=== PATIENT | female | born 1980 | race Caucasian/White ===

== ENCOUNTER 2017-12-18 17:22 | Emergency (ER) | payer OTHER ==
[2017-12-18 17:46] LABS: URINE HCG POC HCG NEGATIVE (Negative)
[2017-12-18 17:58] LABS: BILIRUBIN,URINE NEGATIVE (NEG); CLARITY,URINE CLEAR; COLOR,URINE YELLOW; GLUCOSE,URINE 100 mg/dL (NEG); NITRITE,URINE NEGATIVE (NEG); PROTEIN,URINE NEGATIVE (NEG-TRACE); UROBILINOGEN,URINE 0.2 mg/dL (0.2 mg/dL)
[2017-12-18 17:58] LABS: POC GLUCOSE 167 mg/dL (70-99)
[2017-12-18 18:14] LABS: BACTERIA,URINE FEW /HPF (0-FEW); RBC,URINE 0 /HPF (0-2); SQUAMOUS EPITHELIAL CELL,UR FEW /LPF; TRICHOMONAS,URINE PRESENT; YEAST,URINE PRESENT /HPF
[2017-12-18] MEDS: cefTRIAXone IM 250 MG VIAL IM (18:41)
[2017-12-18] MEDS: FLUCONAZOLE 100 MG TABLET. PO (18:43)
[2017-12-18] MEDS: metroNIDAZOLE 500 MG TABLET PO (18:44)
[2017-12-18] MEDS: AZITHROMYCIN 250 MG TABLET. PO (18:44)
[2017-12-20 15:23] LABS: CHLAMYDIA PROBE Negative (Negative); GC PROBE Negative (Negative)
== END 2017-12-18 19:05 | disposition home or self-care (01) ==
LOC: ER 19:05
DX: N39.0 Urinary tract infection, site not specified (principal); A59.09 Other urogenital trichomoniasis; N94.10 Unspecified dyspareunia; B37.3 Candidiasis of vulva and vagina; F41.9 Anxiety disorder, unspecified; F32.9 Major depressive disorder, single episode, unspecified; E11.9 Type 2 diabetes mellitus without complications; I10 Essential (primary) hypertension; Z96.22 Myringotomy tube(s) status
CPT/HCPCS: 81001; 81025; 82962; 87086; 87491; 87591; 96372; 99284; J0696; Q0111; Q0144